=== PATIENT | male | born 1965 | race Caucasian/White ===

== ENCOUNTER 2016-06-04 09:51 | Emergency (ER) | payer OTHER ==
[2016-06-04] MEDS ORDERED: predniSONE 20 MG TABLET PO STA (12:12)
[2016-06-04] MEDS ORDERED: predniSONE 20 MG TABLET ONE (12:16)
== END 2016-06-04 12:24 | disposition home or self-care (01) ==
DX: M10.072 Idiopathic gout, left ankle and foot (principal); M25.562 Pain in left knee; I10 Essential (primary) hypertension
CPT/HCPCS: 99283; J7512

== ENCOUNTER 2016-08-12 15:35 | Emergency (ER) | payer OTHER ==
--- NOTE | 2016-08-12 16:19 | ED Physician Documentation ---
PD HPI LOWER EXT INJURY - Stated complaint Stated Complaint: LT ANKLE PX - Chief complaint Chief Complaint: Ext Problem - History obtained from History obtained from: Patient, Family - History of Present Illness PD HPI LOW EXT INJURY LOCATION: Left, Ankle, Foot Type of injury: Twist Where injury occurred: Other (friends house) Timing - onset: How many days ago (3) Timing - duration: Days (3) Timing - details: Gradual onset Pain level max: 8 Pain level now: 6 Improved by: Rest, Ice, Immobilization Worsened by: Moving, Palpating Associated symptoms: Swelling. No: Weakness, Numbness, Tingling Contributing factors: No: Anticoagulated, Prior ortho surgery Similar symptoms before: Has not had sx before Recently seen: Not recently seen Review of Systems Neurologic: denies: Focal weakness, Numbness PD PAST MEDICAL HISTORY - Past Medical History Cardiovascular: Hypertension, High cholesterol Musculoskeletal: Other - Past Surgical History Past Surgical History: Yes - Present Medications Home Medications: Ambulatory Orders Medication Instructions Recorded Confirmed Colchicine 1 tab PO DAILY 06/04/16 08/12/16 Esomeprazole [NexIUM] 1 tab PO DAILY 06/04/16 08/12/16 Febuxostat [Uloric] 1 tab PO DAILY 06/04/16 08/12/16 Lisinopril 1 tab PO DAILY 06/04/16 08/12/16 - Allergies Allergies/Adverse Reactions: Allergies Allergy/AdvReac Type Severity Reaction Status Date / Time nystatin [From Bio-Statin] Allergy Intermediate Edema Verified 08/12/16 15:41 shellfish derived Allergy Edema Verified 08/12/16 15:41 - Social History Does the pt smoke?: No Smoking Status: Never smoker Does the pt drink ETOH?: No Does the pt have substance abuse?: No - Immunizations Immunizations are current?: Yes PD ED PE NORMAL - Vitals Vital signs reviewed: Yes - General General: Alert and oriented X 3, No acute distress - Derm Derm: Warm and dry - Extremities Extremities: Other (LLE - Tender to palpation over left lateral malleolus as well as the base of the fifth metatarsal. No gross deformity. Mild swelling. Otherwise normal exam of the foot and ankle) - Neuro Neuro: Alert and oriented X 3 - Psych Psych: Normal mood, Normal affect Results - Vitals Vitals: Vital Signs - 24 hr 08/12/16 08/12/16 15:39 17:20 Temperature 36.4 C L 36.8 C Heart Rate 96 99 Respiratory 18 18 Rate Blood Pressure 135/86 H 134/88 H O2 Saturation 99 100 Oxygen O2 Source Room air - Rads (name of study) L ankle xray Radiology: Prelim report reviewed, EMP read contemporaneously, See rad report ( Soft tissue swelling without evidence of acute fracture. Small plantar heel spur. ) L foot xray Radiology: Prelim report reviewed, EMP read contemporaneously, See rad report ( Normal foot radiography. ) PD MEDICAL DECISION MAKING - ED course Complexity details: reviewed results, re-evaluated patient, considered differential (No gout, no septic joint, no fractures), d/w patient ED course: Patient is a 50-year-old male with what appears to be a left ankle and foot sprain. No acute findings on x-rays. Placed in a gel splint for comfort. He declines crutches here and states that he has them at home. Will use Motrin and Tylenol for pain. Patient counseled regarding signs and symptoms for which I believe and urgent re-evaluation would be necessary. Patient with good understanding of and agreement to plan and is comfortable going home at this time This document was made in part using voice recognition software. While efforts are made to proofread this document, sound alike and grammatical errors may occur. Departure - Departure Disposition: 01 Home, Self Care Clinical Impression: Ankle sprain Qualifiers: Encounter type: initial encounter Involved ligament of ankle: unspecified ligament Laterality: left Qualified Code(s): S93.402A - Sprain of unspecified ligament of left ankle, initial encounter Condition: Good Instructions: ED Sprain Ankle Follow-Up: your,doctor in 1 week [Other] Comments: You may bear weight as tolerated. Use your crutches at home as needed. Return if you worsen. Discharge Date/Time: 08/12/16 17:20
--- NOTE | 2016-08-12 16:24 | XRAY Preliminary Report ---
Exam: XR Ankle 3 View LT IMPRESSION: 1. Soft tissue swelling without evidence of acute fracture. 2. Small plantar heel spur. [facility] SITE ID: [id number]
--- NOTE | 2016-08-12 16:26 | XRAY Report ---
EXAM: LEFT ANKLE RADIOGRAPHY EXAM DATE: 08/12/2016 04:01 PM. CLINICAL HISTORY: Left lateral ankle pain and swelling for 2 days. COMPARISON: None. TECHNIQUE: 3 views. FINDINGS: Bones: No acute fracture. Ossicle adjacent to the medial malleolus. Small well-formed plantar heel sp ur. Joints: Normal. No effusion. No subluxations. The ankle mortise is normally aligned. Soft Tissues: Mild to moderate soft tissue swelling. IMPRESSION: 1. Soft tissue swelling without evidence of acute fracture. 2. Small plantar heel spur. [facility] Referring Provider Line: [phone] SITE ID: [id number]
--- NOTE | 2016-08-12 16:53 | XRAY Report ---
EXAM: LEFT FOOT RADIOGRAPHY EXAM DATE: 08/12/2016 04:28 PM. CLINICAL HISTORY: 5th metatarsal tenderness/swelling. COMPARISON: None. TECHNIQUE: 3 views. FINDINGS: Bones: Normal. No fractures or bone lesions. Joints: Normal. No subluxations. Soft Tissues: Normal. No soft tissue swelling. IMPRESSION: Normal foot radiography. [facility] Referring Provider Line: [phone] SITE ID: [id number]
[2016-08-12 17:20] VITALS: BP 134/88
== END 2016-08-12 17:20 | disposition home or self-care (01) ==
LOC: ED 15:35
DX: S93.402A Sprain of unspecified ligament of left ankle, initial encounter (principal); X50.0XXA Overexertion from strenuous movement or load, initial encounter; Y92.019 Unspecified place in single-family (private) house as the place of occurrence of the external cause; I10 Essential (primary) hypertension; E78.00 Pure hypercholesterolemia, unspecified
CPT/HCPCS: 99283

== ENCOUNTER 2019-02-13 08:55 | Outpatient (CLI) | payer OTHER ==
[2019-02-13 13:17] LABS: BASOPHILS # (AUTO) 0.1 10^3/uL (0.0-0.1); BASOPHILS % (AUTO) 1.4 %; EOSINOPHILS # (AUTO) 0.1 10^3/uL (0.0-0.7); EOSINOPHILS % (AUTO) 1.9 %; HGB - HEMOGLOBIN 13.9 g/dL (14.0-18.0); LYMPHOCYTES # (AUTO) 1.3 10^3/uL (1.5-3.5); LYMPHOCYTES % (AUTO) 17.9 %; MEAN CORPUSCULAR HEMOGLOBIN 27.7 pg (27.0-31.0); MEAN CORPUSCULAR HGB CONC 31.5 g/dL (32.0-36.0); MEAN CORPUSCULAR VOLUME 87.8 fL (80.0-94.0); MEAN PLATELET VOLUME 10.2 fL (7.4-11.4); MONOCYTES # (AUTO) 0.6 10^3/uL (0.0-1.0); MONOCYTES % (AUTO) 7.9 %; NEUTROPHILS # (AUTO) 5.2 10^3/uL (1.5-6.6); NEUTROPHILS % (AUTO) 70.5 %; PLT - PLATELET COUNT 348 10^3/uL (130-450); RED BLOOD COUNT 5.02 10^6/uL (4.70-6.10); RED CELL DISTRIBUTION WIDTH 14.6 % (12.0-15.0); WHITE BLOOD COUNT 7.4 x10^3/uL (4.8-10.8)
[2019-02-13 13:34] LABS: HEMOGLOBIN A1C 0.73 g/dL; HEMOGLOBIN A1C % 6.6 % (4.6-6.2)
[2019-02-13 13:35] LABS: ALBUMIN 4.2 g/dL (3.2-5.5); ALBUMIN/GLOBULIN RATIO 1.1 (1.0-2.2); ALKALINE PHOSPHATASE 60 IU/L (42-121); ALT ALANINE AMINOTRANSFERASE 35 IU/L (10-60); AST ASPARTATE AMINOTRANSFERASE 43 IU/L (10-42); BILIRUBIN,TOTAL 0.6 mg/dL (0.2-1.0); BUN - BLOOD UREA NITROGEN 16 mg/dL (6-20); CALCIUM 9.4 mg/dL (8.5-10.3); CARBON DIOXIDE - CO2 25 mmol/L (21-32); CHLORIDE 104 mmol/L (101-111); CHOL/HDL RATIO 4.4 (<5.0); CHOLESTEROL 221 mg/dL; CREATININE 0.8 mg/dL (0.6-1.2); GFR - MDRD 102 (>89); GLUCOSE 132 mg/dL (70-100); HDL CHOLESTEROL 50 mg/dL; LDL CHOLESTEROL,CALCULATED 146 mg/dL; LDL/HDL RATIO 2.9 (<3.6); SODIUM 136 mmol/L (135-145); VLDL CHOLESTEROL 25 mg/dL
== END 2019-02-13 23:59 | disposition home or self-care (01) ==
LOC: LAB.N 08:55
PROVIDERS: ATTEND Family Medicine
DX: E78.5 Hyperlipidemia, unspecified (principal); R73.03 Prediabetes; I10 Essential (primary) hypertension
CPT/HCPCS: 36415; 80050; 80061; 83036; 83721

== ENCOUNTER 2019-05-30 08:00 | Outpatient (CLI) | payer OTHER ==
[2019-05-30 19:39] LABS: CALCIUM 9.4 mg/dL (8.5-10.3); CREATININE 1.1 mg/dL (0.6-1.2)
[2019-05-30 19:40] LABS: CREATININE,URINE 90.9 mg/dL; MICROALBUM/CREATININE RATIO,UR 68.2 ug/mg (<30.0); MICROALBUMIN,URINE 6.2 mg/dL (0-300.0)
[2019-05-30 20:11] LABS: HB2 TOTAL 14.2 g/dL; HEMOGLOBIN A1C 0.7 g/dL; HEMOGLOBIN A1C % 6.7 % (4.6-6.2)
== END 2019-05-30 23:59 ==
LOC: LAB.N 08:00
PROVIDERS: ATTEND Family Medicine
DX: E11.9 Type 2 diabetes mellitus without complications (principal)
CPT/HCPCS: 36415; 80048; 82043; 82570; 83036

== ENCOUNTER 2020-02-26 11:12 | Outpatient (CLI) | payer OTHER ==
--- NOTE | 2020-02-26 11:15 | XRAY Report ---
PROCEDURE: Knee Standing BILAT INDICATIONS: BILATERAL CHRONIC KNEE PAIN TECHNIQUE: 4 views of the right knee, and for views of the left knee. COMPARISON: None. FINDINGS: Bones: No acute fractures or dislocations. No suspicious bony lesions. Joint spaces appear mildly narrowed at the medial and lateral compartments slightly greater on the left than the right with weig htbearing. Soft tissues: No knee joint effusions. No suspicious soft tissue calcification. IMPRESSION: No acute trauma found. No effusion or loose body seen. Mild degenerative joint space narrowing bilate rally on weightbearing, slightly greater on the left than the right. Incidental note is made of calci fic prominence at the distal tendon insertion at the right knee on the superior patella - mild calcif ic tendinitis is the presumed cause at that site. Reviewed by: Guicho Gee MD on 02/26/2020 11:14 AM PST Approved by: Guicho Gee MD on 02/26/2020 11:14 AM PST Station ID: [id number]
== END 2020-02-26 23:59 | disposition home or self-care (01) ==
LOC: DI.N 11:12
PROVIDERS: ATTEND Orthopaedic Surgery
DX: M17.0 Bilateral primary osteoarthritis of knee (principal)

== ENCOUNTER 2020-10-13 09:02 | Emergency (ER) | payer OTHER ==
[2020-10-13] MEDS ORDERED: predniSONE 20 MG TABLET PO STA (12:36)
[2020-10-13] MEDS ORDERED: HYDROcod/ACETAM 5/325 MG TABLET PO STA (12:36)
[2020-10-13] MEDS ORDERED: CYCLOBENZAPRINE 10 MG TABLET PO STA (12:36)
--- NOTE | 2020-10-13 12:42 | ED Physician Documentation ---
History of Present Illness - Stated complaint Stated Complaint: KNEE PX - Chief complaint Chief Complaint: Ext Problem - History obtained from History obtained from: Patient - History of Present Illness Timing: How many weeks ago (2) Pain level max: 8 Pain level now: 8 - Additonal information Additional information: Patient is a 55-year-old male who presents to the emergency department with bilateral knee pain. States ongoing for the past 2 to 3 weeks. Has a history of arthritis as well as gout in the bilateral knees. States this feels like his typical gout flare. He is currently on allopurinol at home. Has been taking Motrin without relief. Worse with movement, better with rest. No fevers. No chills. Has been evaluated by orthopedics for this as well. No history of trauma. Review of Systems Constitutional: denies: Fever GI: denies: Vomiting Neurologic: denies: Head injury PD PAST MEDICAL HISTORY - Past Medical History Cardiovascular: Hypertension, High cholesterol Respiratory: None Endocrine/Autoimmune: None GI: GERD : None HEENT: None Psych: Depression, Post traumatic stress disorder Musculoskeletal: Other Derm: None - Past Surgical History Past Surgical History: Yes - Present Medications Home Medications: Ambulatory Orders Medication Instructions Recorded Confirmed Colchicine 1 tab PO DAILY 06/04/16 08/12/16 Esomeprazole [NexIUM] 1 tab PO DAILY 06/04/16 10/13/20 lisinopriL [Lisinopril] 1 tab PO DAILY 06/04/16 10/13/20 Cyclobenzaprine [Flexeril] 10 mg PO TID PRN #20 tablet 10/13/20 Escitalopram [Lexapro] 5 mg PO DAILY 10/13/20 10/13/20 HYDROcod/ACETAM 5/325 [[place] 5/325] 1 - 2 ea PO Q6H PRN #14 tablet 10/13/20 allopurinoL [Zyloprim] 150 mg PO DAILY 10/13/20 10/13/20 predniSONE [Deltasone] 10 mg PO [id number] #42 tab 10/13/20 - Allergies Allergies/Adverse Reactions: Allergies Allergy/AdvReac Type Severity Reaction Status Date / Time nystatin [From Bio-Statin] Allergy Intermediate Edema Verified 10/13/20 09:20 shellfish derived Allergy Edema Verified 10/13/20 09:20 - Social History Does the pt smoke?: No Smoking Status: Never smoker Does the pt drink ETOH?: No Does the pt have substance abuse?: No - Immunizations Immunizations are current?: Yes PD ED PE NORMAL - Vitals Vital signs reviewed: Yes - General General: Alert and oriented X 3, No acute distress, Well developed/nourished - HEENT HEENT: Moist mucous membranes - Neck Neck: Supple, no meningeal sign - Cardiac Cardiac: RRR - Respiratory Respiratory: No respiratory distress, Clear bilaterally - Abdomen Abdomen: Soft, Non tender, Non distended - Derm Derm: Warm and dry - Extremities Extremities: No deformity, Other (Mild tenderness over the bilateral knees with bilateral swelling. Limited range of motion secondary to pain. Neurovascularly intact.) - Neuro Neuro: Alert and oriented X 3 - Psych Psych: Normal mood, Normal affect Results - Vitals Vitals: Vital Signs - 24 hr 10/13/20 10/13/20 10/13/20 09:20 12:01 12:44 Temperature 36.4 C L 36.4 C L Heart Rate 74 94 66 Respiratory 18 16 14 Rate Blood Pressure 136/97 H 154/92 H 132/81 H O2 Saturation 97 98 96 Oxygen O2 Source Room air PD MEDICAL DECISION MAKING - ED course Complexity details: reviewed results, re-evaluated patient, considered differential, d/w patient ED course: 55-year-old male with what appears to be gout versus osteoarthritis of the bilateral knees. We will place on a steroid taper, pain medication for home. He requested a muscle relaxant as well. We will add Flexeril. Recommend that he talk to his doctor about potential PRP injections of the knee to see if this will help with his osteoarthritis in the knees. Patient counseled regarding signs and symptoms for which I believe and urgent re-evaluation would be necessary. Patient with good understanding of and agreement to plan and is comfortable going home at this time This document was made in part using voice recognition software. While efforts are made to proofread this document, sound alike and grammatical errors may occur. Departure - Departure Disposition: 01 Home, Self Care Clinical Impression: Gouty arthritis of both knees Condition: Good Instructions: ED Arthritis Gout Follow-Up: [facility] [Provider Group] CHRISTINA WEBB ARNP [Primary Care Provider] - Within 1 week Prescriptions: predniSONE [Deltasone] 10 mg PO [id number] #42 tab Cyclobenzaprine [Flexeril] 10 mg PO TID PRN #20 tablet PRN Reason: Spasms HYDROcod/ACETAM 5/325 [[place] 5/325] 1 - 2 ea PO Q6H PRN #14 tablet PRN Reason: Pain Comments: Please follow-up with your doctor for further care. Return if you worsen. You should discuss PRP injections of the knee to see if this would help you. Unclear if this would be approved by the [place] or [facility]. Continue your current medications at home. I am prescribing a short course of narcotic pain medication for you. These are potentially dangerous and addictive medications that should be used carefully. These medications may constipate you. Take an ekrt-tly-clsozbe stool softener (docusate) twice daily with plenty of water while taking these medications. If you go 24 hours without a bowel movement, take ixoh-clp-qetjwcu miralax, per package instructions. Do not drink or drive while taking these medications. If you received narcotic or sedating medications while in the emergency department, do not drive for 24 hours. Store this medication in a safe, secure place and out of reach of children. It is a violation of federal law to give or sell this medication to another person or to use in a manner other than prescribed. The ED will not refill narcotic prescriptions, including prescriptions lost or stolen. To dispose of unwanted medications: 1. [facility] at [address] in [place] has a medication drop box. They accept prescription medications (in pill form) Wednesday through Wednesday 9:00 a.m. to 5:00 p.m. 2. [facility] [employer] accepts prescription medications (in pill form only) for disposal year round. Call for more information. 3. Contact the [facility] for the next [facility] sponsored prescription drug collection event. , [phone], or [phone];
[2020-10-13 12:45] VITALS: BP 132/81
== END 2020-10-13 13:00 | disposition home or self-care (01) ==
LOC: ED 09:02
DX: M10.062 Idiopathic gout, left knee (principal); M10.061 Idiopathic gout, right knee; I10 Essential (primary) hypertension
CPT/HCPCS: 99282; 99284; A9270; J7512

== ENCOUNTER 2020-12-08 09:47 | Emergency (ER) | payer OTHER ==
[2020-12-08] MEDS ORDERED: predniSONE 20 MG TABLET PO STA (11:39)
[2020-12-08] MEDS ORDERED: COLCHICINE 0.6 MG TABLET PO STA (11:39)
--- NOTE | 2020-12-08 12:20 | ED Physician Documentation ---
History of Present Illness - Stated complaint Stated Complaint: R+L KNEE/ANKLE PX - Chief complaint Chief Complaint: Ext Problem - History obtained from History obtained from: Patient - Additonal information Additional information: Patient comes emergency department chief complaint of onset of bilateral knee and ankle pain when he woke up this morning. Patient states that he has a history of both gout and a lot of stress to his joints over the years from doing martial arts, and that he normally takes allopurinol at baseline. However, he is not sure what triggered the pain he is currently having. He has not noticed any swelling or redness, and has had no fevers. He is not sure if the discomfort is due to the rain which just started last night and which we have not had for a few months now. Patient denies any acute injuries. No other complaints at this time. Review of Systems Ten Systems: 10 systems reviewed and negative Constitutional: reports: Reviewed and negative Eyes: reports: Reviewed and negative Ears: reports: Reviewed and negative Nose: reports: Reviewed and negative Throat: reports: Reviewed and negative Cardiac: reports: Reviewed and negative Respiratory: reports: Reviewed and negative GI: reports: Reviewed and negative : reports: Reviewed and negative Skin: reports: Reviewed and negative Musculoskeletal: reports: Joint pain Neurologic: reports: Reviewed and negative Psychiatric: reports: Reviewed and negative Endocrine: reports: Reviewed and negative Immunocompromised: reports: Reviewed and negative PD PAST MEDICAL HISTORY - Past Medical History Cardiovascular: Hypertension, High cholesterol Respiratory: None Endocrine/Autoimmune: None GI: GERD : None HEENT: None Psych: Depression, Post traumatic stress disorder Musculoskeletal: Other Derm: None - Past Surgical History Past Surgical History: Yes - Present Medications Home Medications: Ambulatory Orders Medication Instructions Recorded Confirmed Colchicine 1 tab PO DAILY 06/04/16 08/12/16 Esomeprazole [NexIUM] 1 tab PO DAILY 06/04/16 10/13/20 lisinopriL [Lisinopril] 1 tab PO DAILY 06/04/16 10/13/20 Cyclobenzaprine [Flexeril] 10 mg PO TID PRN #20 tablet 10/13/20 Escitalopram [Lexapro] 5 mg PO DAILY 10/13/20 10/13/20 HYDROcod/ACETAM 5/325 [[place] 5/325] 1 - 2 ea PO Q6H PRN #14 tablet 10/13/20 allopurinoL [Zyloprim] 150 mg PO DAILY 10/13/20 10/13/20 predniSONE [Deltasone] 10 mg PO [id number] #42 tab 10/13/20 Colchicine [Colcrys] 0.6 mg PO DAILY #15 tablet 12/08/20 HYDROcod/ACETAM 5/325 [[place] 5/325] 1 - 2 tablet PO Q6H PRN #14 tablet 12/08/20 predniSONE [Deltasone] 60 mg PO DAILY 5 Days #15 tablet 12/08/20 - Allergies Allergies/Adverse Reactions: Allergies Allergy/AdvReac Type Severity Reaction Status Date / Time nystatin [From Bio-Statin] Allergy Intermediate Edema Verified 12/08/20 09:57 shellfish derived Allergy Edema Verified 12/08/20 09:57 - Social History Does the pt smoke?: No Smoking Status: Never smoker Does the pt drink ETOH?: No Does the pt have substance abuse?: No - Immunizations Immunizations are current?: Yes PD ED PE NORMAL - Vitals Vital signs reviewed: Yes - General General: Alert and oriented X 3, No acute distress, Well developed/nourished - HEENT HEENT: Atraumatic, PERRL, EOMI, Moist mucous membranes - Neck Neck: Supple, no meningeal sign - Cardiac Cardiac: Strong equal pulses - Respiratory Respiratory: No respiratory distress - Derm Derm: Normal color, Warm and dry, No rash - Extremities Extremities: No deformity, No edema, No calf tenderness / cord, Other (Patient has good range of motion of knees and ankles but does cause some pain in each joint.) - Neuro Neuro: Alert and oriented X 3, nurse chemical dependency 2-12 intact, No motor deficit, No sensory deficit, Normal speech - Psych Psych: Normal mood, Normal affect Results - Vitals Vitals: Vital Signs - 24 hr 12/08/20 09:55 Temperature 36.4 C L Heart Rate 93 Respiratory 16 Rate Blood Pressure 143/101 H O2 Saturation 99 Oxygen O2 Source Room air - Labs Labs: Laboratory Tests 12/08/20 11:42 POC Whole Bld Glucose 113 H PD MEDICAL DECISION MAKING - ED course Complexity details: considered differential, d/w patient ED course: I discussed with the patient that imaging is unlikely to be helpful, as patient has not had any acute injury. He does not have any current Findings consistent with acute gout flare. I gave him doses of prednisone and colchicine here in the emergency department. I have given him prescriptions for the same at home, plus little hydrocodone. We have discussed follow-up with his primary care physician in the usual indications for return. Departure - Departure Disposition: Home, Self Care Clinical Impression: Joint pain Qualifiers: Joint pain location: unspecified Qualified Code(s): M25.50 - Pain in unspecified joint Gout Qualifiers: Gout site: unspecified site Gout etiology: unspecified cause Chronicity: acute Qualified Code(s): M10.9 - Gout, unspecified Condition: Stable Instructions: ED Diet Gout, ED Arthritis Gout Prescriptions: Colchicine [Colcrys] 0.6 mg PO DAILY #15 tablet predniSONE [Deltasone] 60 mg PO DAILY 5 Days #15 tablet HYDROcod/ACETAM 5/325 [[place] 5/325] 1 - 2 tablet PO Q6H PRN #14 tablet PRN Reason: Pain Comments: Your prescriptions have been electronically transmitted to [facility] in [place]. It is not clear whether it is your gout or the change in weather causing old stresses to your joints to act up. Either way, you may take the medications as needed until you are feeling better. Please follow-up with your primary care physician for further evaluation if you are not feeling better in the next week.
[2020-12-08 12:48] VITALS: BP 150/98
== END 2020-12-08 12:47 | disposition home or self-care (01) ==
LOC: ED 09:47
DX: M25.50 Pain in unspecified joint (principal); M10.9 Gout, unspecified; I10 Essential (primary) hypertension
CPT/HCPCS: 99283; A9270; J7512

== ENCOUNTER 2021-02-02 15:23 | Emergency (ER) | payer OTHER ==
[2021-02-02] MEDS ORDERED: CHERRY SYRUP 10 ML UDC PO ONE (16:00)
[2021-02-02] MEDS ORDERED: DEXAMETHASONE 10 MG/ML VIAL PO STA (16:00)
--- NOTE | 2021-02-02 16:03 | ED Physician Documentation ---
History of Present Illness - Stated complaint Stated Complaint: JOINT PX - Chief complaint Chief Complaint: General - History obtained from History obtained from: Patient - History of Present Illness Timing: Yesterday - Additonal information Additional information: 55-year-old male with a history of recurrent polyarthritis has had a flare of his arthritis complaints and is complaining of pain in the joints of both of his knees both of his ankles his right wrist. He has had issues with this previously a number of times and he usually uses a rescue with prednisone and colchicine. He has a history of gout he knows he does not have gout now. He woke up this morning with worsening pain and has come to the emergency department for relief. He has a primary care doctor at the [facility] and he has not had a referral to rheumatology. Review of Systems Constitutional: denies: Fever Ears: denies: Ear pain Nose: reports: Congestion Throat: denies: Sore throat Respiratory: reports: Dyspnea, Cough GI: denies: Nausea, Vomiting : denies: Dysuria Skin: denies: Rash Musculoskeletal: reports: Joint pain, Joint swelling, Pain with weight bearing. denies: Neck pain, Back pain Neurologic: denies: Generalized weakness, Focal weakness, Numbness PD PAST MEDICAL HISTORY - Past Medical History Cardiovascular: Hypertension, High cholesterol Respiratory: None Endocrine/Autoimmune: None GI: GERD : None HEENT: None Psych: Depression, Post traumatic stress disorder Musculoskeletal: Other Derm: None - Past Surgical History Past Surgical History: Yes - Present Medications Home Medications: Ambulatory Orders Medication Instructions Recorded Confirmed Colchicine 1 tab PO DAILY 06/04/16 08/12/16 Esomeprazole [NexIUM] 1 tab PO DAILY 06/04/16 10/13/20 lisinopriL [Lisinopril] 1 tab PO DAILY 06/04/16 10/13/20 Cyclobenzaprine [Flexeril] 10 mg PO TID PRN #20 tablet 10/13/20 Escitalopram [Lexapro] 5 mg PO DAILY 10/13/20 10/13/20 HYDROcod/ACETAM 5/325 [[place] 5/325] 1 - 2 ea PO Q6H PRN #14 tablet 10/13/20 allopurinoL [Zyloprim] 150 mg PO DAILY 10/13/20 10/13/20 predniSONE [Deltasone] 10 mg PO [id number] #42 tab 10/13/20 Colchicine [Colcrys] 0.6 mg PO DAILY #15 tablet 12/08/20 HYDROcod/ACETAM 5/325 [[place] 5/325] 1 - 2 tablet PO Q6H PRN #14 tablet 12/08/20 predniSONE [Deltasone] 60 mg PO DAILY 5 Days #15 tablet 12/08/20 Colchicine [Colcrys] 0.6 mg PO DAILY #15 tablet 02/02/21 HYDROcod/ACETAM 5/325 [[place] 5/325] 1 - 2 tablet PO Q6H PRN #14 tablet 02/02/21 dexAMETHasone [Decadron] 4 mg PO 0800 #5 tablet 02/02/21 - Allergies Allergies/Adverse Reactions: Allergies Allergy/AdvReac Type Severity Reaction Status Date / Time nystatin [From Bio-Statin] Allergy Intermediate Edema Verified 02/02/21 15:26 shellfish derived Allergy Edema Verified 02/02/21 15:26 - Social History Does the pt smoke?: No Smoking Status: Never smoker Does the pt drink ETOH?: No Does the pt have substance abuse?: No - Immunizations Immunizations are current?: Yes PD ED PE NORMAL - Vitals Vital signs reviewed: Yes (tachy and hypertensive ) - General General: Alert and oriented X 3, No acute distress, Well developed/nourished - HEENT HEENT: Atraumatic, PERRL, EOMI, Ears normal, Moist mucous membranes, Pharynx benign, Dentition benign - Neck Neck: Supple, no meningeal sign, No bony TTP - Cardiac Cardiac: RRR, No murmur - Respiratory Respiratory: No respiratory distress - Abdomen Abdomen: Soft, Non tender, Non distended - Back Back: No CVA TTP, No spinal TTP - Derm Derm: Normal color, Warm and dry, No rash - Extremities Extremities: Other (Pain to the right knee to any movement even with direct palpation no significant effusion pain to range of motion.) - Neuro Neuro: Alert and oriented X 3, pharmacist technician 2-12 intact, No motor deficit, No sensory deficit, Normal speech Eye Opening: Spontaneous Motor: Obeys Commands Verbal: Oriented GCS Score: 15 - Psych Psych: Normal mood, Normal affect Results - Vitals Vitals: Vital Signs - 24 hr 02/02/21 15:26 Temperature 36.5 C Heart Rate 110 H Respiratory 16 Rate Blood Pressure 152/80 H O2 Saturation 97 Oxygen O2 Source Room air PD MEDICAL DECISION MAKING - ED course Complexity details: reviewed results, re-evaluated patient, considered differential, d/w patient ED course: 55-year-old male with a history of recurrent polyarthritis has not seen the special crimes investigator he has had symptoms for 10 years undulating. He has severe pain in all of his joints today and he is administered some dexamethasone we will provide some additional steroid as well as the requested colchicine and some limited amount of pain medication. I have encouraged patient to follow-up with rheumatology and today we are obtaining a nasal swab for Covid as a send out. Departure - Departure Disposition: Home, Self Care Clinical Impression: Polyarthritis Condition: Stable Instructions: ED Joint Pain, ED Degenerative Joint Disease Follow-Up: PAVEL KEYES MD [Primary Care Provider] - Prescriptions: Colchicine [Colcrys] 0.6 mg PO DAILY #15 tablet dexAMETHasone [Decadron] 4 mg PO 0800 #5 tablet HYDROcod/ACETAM 5/325 [[place] 5/325] 1 - 2 tablet PO Q6H PRN #14 tablet PRN Reason: Pain Comments: Leonel, today it looks like you have polyarthritis that has flared and it appears you have had these episodes a number of times. A follow-up with rheumatology is indicated and may provide more additional or permanent relief. Follow-up with your primary care doctor for referral to rheumatology. This is the third visit for a narcotic pain prescription for the same problem in the calendar year. Our emergency department policy is a limit of prescription a year and we will not be able to provide you with additional pain medication for this problem again.
[2021-02-02 16:24] VITALS: BP 125/89
== END 2021-02-02 16:24 | disposition home or self-care (01) ==
LOC: ED 15:23
DX: M15.9 Polyosteoarthritis, unspecified (principal); I10 Essential (primary) hypertension; Z20.822 Contact with and (suspected) exposure to COVID-19
CPT/HCPCS: 87635; 99283; A9270

== ENCOUNTER 2021-05-15 12:30 | Outpatient (CLI) | payer OTHER ==
[2021-05-15 17:44] LABS: BASOPHILS # (AUTO) 0.2 10^3/uL (0.0-0.1); BASOPHILS % (AUTO) 2.8 %; EOSINOPHILS # (AUTO) 0.3 10^3/uL (0.0-0.7); EOSINOPHILS % (AUTO) 3.3 %; HCT - HEMATOCRIT 41.2 % (42.0-52.0); LYMPHOCYTES # (AUTO) 2.3 10^3/uL (1.5-3.5); LYMPHOCYTES % (AUTO) 29.7 %; MEAN CORPUSCULAR HEMOGLOBIN 26.2 pg (27.0-31.0); MEAN CORPUSCULAR HGB CONC 31.6 g/dL (32.0-36.0); MEAN CORPUSCULAR VOLUME 83.1 fL (80.0-94.0); MEAN PLATELET VOLUME 10.5 fL (7.4-11.4); MONOCYTES # (AUTO) 0.6 10^3/uL (0.0-1.0); MONOCYTES % (AUTO) 8.1 %; NEUTROPHILS # (AUTO) 4.4 10^3/uL (1.5-6.6); NEUTROPHILS % (AUTO) 55.8 %; PLT - PLATELET COUNT 428 10^3/uL (130-450); RED BLOOD COUNT 4.96 10^6/uL (4.70-6.10); RED CELL DISTRIBUTION WIDTH 16.6 % (12.0-15.0); WHITE BLOOD COUNT 7.9 x10^3/uL (4.8-10.8)
[2021-05-15 18:24] LABS: ALBUMIN 4.2 g/dL (3.2-5.5); ALBUMIN/GLOBULIN RATIO 1.1 (1.0-2.2); ALKALINE PHOSPHATASE 81 IU/L (42-121); ALT ALANINE AMINOTRANSFERASE 24 IU/L (10-60); AST ASPARTATE AMINOTRANSFERASE 26 IU/L (10-42); BILIRUBIN,TOTAL 0.3 mg/dL (0.2-1.0); BUN - BLOOD UREA NITROGEN 16 mg/dL (6-20); CALCIUM 9.6 mg/dL (8.5-10.3); CARBON DIOXIDE - CO2 25 mmol/L (21-32); CHLORIDE 104 mmol/L (101-111); CHOL/HDL RATIO 4.2 (<5.0); CHOLESTEROL 191 mg/dL; CREATININE 0.8 mg/dL (0.6-1.2); GFR - MDRD 101 (>89); GLUCOSE 90 mg/dL (70-100); HDL CHOLESTEROL 46 mg/dL; LDL CHOLESTEROL,CALCULATED 120 mg/dL; LDL/HDL RATIO 2.6 (<3.6); POTASSIUM 4.2 mmol/L (3.5-5.0); SODIUM 137 mmol/L (135-145); TOTAL PROTEIN 7.9 g/dL (6.7-8.2); TRIGLYCERIDES 126 mg/dL; URIC ACID 3.9 mg/dL (2.6-7.2); VLDL CHOLESTEROL 25 mg/dL
[2021-05-15 18:33] LABS: THYROID STIMULATING HORMONE 2.65 uIU/mL (0.34-5.60)
[2021-05-15 19:36] LABS: ESTIMATED AVERAGE GLUCOSE 137 mg/dL (70-100); HEMOGLOBIN A1c% 6.4 % (4.27-6.07)
== END 2021-05-15 12:31 | disposition home or self-care (01) ==
LOC: LAB.N 12:30
PROVIDERS: ATTEND Physician Assistant
DX: I10 Essential (primary) hypertension (principal); E78.5 Hyperlipidemia, unspecified; R73.03 Prediabetes; Z12.5 Encounter for screening for malignant neoplasm of prostate; Z13.29 Encounter for screening for other suspected endocrine disorder; M10.9 Gout, unspecified; Z13.9 Encounter for screening, unspecified
CPT/HCPCS: 36415; 80053; 80061; 83036; 83721; 84153; 84443; 84550; 85025

== ENCOUNTER 2021-07-31 08:19 | Emergency (ER) | payer OTHER ==
[2021-07-31] MEDS ORDERED: ERYTHROMYCIN OPHTH OINT 1 GM TUBE LEFTEYE STA (08:37)
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
[2021-07-31 08:40] VITALS: BP 183/117
== END 2021-07-31 08:44 | disposition home or self-care (01) ==
LOC: ED 08:19
DX: S01.112A Laceration without foreign body of left eyelid and periocular area, initial encounter (principal); Y04.2XXA Assault by strike against or bumped into by another person, initial encounter; Y92.213 High school as the place of occurrence of the external cause
CPT/HCPCS: 99282; J3490

== ENCOUNTER 2023-05-17 09:13 | Emergency (ER) | payer OTHER ==
--- NOTE | 2023-05-17 11:08 | ED Physician Documentation ---
PD HPI BACK PAIN - Stated complaint Stated Complaint: BACK/LT ARM PX - Chief complaint Chief Complaint: Back Pain - History obtained from History obtained from: Patient - History of Present Illness Timing - onset: Last night Timing - duration: Hours (10-12) Timing - details: Abrupt onset (he sates he coughed/sneezed and onset of left throacic back pain. Hurts to move and breath.) Location: Mid (scapular level left back.), Left Quality: Pain, Spasm Associated symptoms: No: Weakness, Numbness Worsened by: Movement, Twisting, Palpation Contributing factors: Other (sneezed/coughed and onset of the pain.) Similar symptoms before: Has not had sx before Review of Systems Constitutional: denies: Fever, Chills Nose: denies: Rhinorrhea / runny nose, Congestion Throat: denies: Sore throat Cardiac: denies: Chest pain / pressure Respiratory: denies: Dyspnea Neurologic: denies: Focal weakness, Numbness PD PAST MEDICAL HISTORY - Past Medical History Past Medical History: Yes Cardiovascular: Hypertension, High cholesterol Respiratory: Sleep apnea, CPAP use Endocrine/Autoimmune: None GI: GERD : None HEENT: None Psych: Depression, Post traumatic stress disorder Musculoskeletal: Osteoarthritis, Gout, Other Derm: None - Past Surgical History Past Surgical History: Yes - Present Medications Home Medications: Ambulatory Orders Medication Instructions Recorded Confirmed Esomeprazole [NexIUM] 40 mg PO DAILY 06/04/16 05/17/23 lisinopriL [Lisinopril] 40 mg PO DAILY 06/04/16 05/17/23 Escitalopram [Lexapro] 5 mg PO DAILY 10/13/20 05/17/23 allopurinoL [Zyloprim] 150 mg PO DAILY 10/13/20 05/17/23 Cyclobenzaprine [Flexeril] 10 mg PO TID PRN #20 tablet 05/17/23 HYDROcod/ACETAM 5/325 [[place] 5/325] 1 ea PO Q6H PRN #18 tablet 05/17/23 Lidocaine Patch 5% [Lidoderm Patch] 1 patch TOP DAILY PRN #10 patch 05/17/23 Meloxicam [Mobic] 7.5 mg PO BID 10 Days #20 tablet 05/17/23 - Allergies Allergies/Adverse Reactions: Allergies Allergy/AdvReac Type Severity Reaction Status Date / Time shellfish derived Allergy Unknown Verified 05/17/23 09:19 - Social History Does the pt smoke?: Yes Smoking Status: Current some day smoker Does the pt drink ETOH?: No Does the pt have substance abuse?: Yes Substance Use and Type: CBD oil / Products - Immunizations Immunizations are current?: Yes - POLST Patient has POLST: No PD ED PE NORMAL - Vitals Vital signs reviewed: Yes - General General: Alert and oriented X 3, Well developed/nourished, Other (appears very uncomfortable with movement and moderate breathing. Pain scapular level left back. ) - Neck Neck: Supple, no meningeal sign, No adenopathy - Cardiac Cardiac: RRR, No murmur - Respiratory Respiratory: Clear bilaterally - Abdomen Abdomen: Soft, Non tender - Back Back: No spinal TTP, Other (tender in muscle left lower scapular area. No skin lesions. Has focal tender spot in firm muscle area c/w muscle spasm. ) - Derm Derm: Normal color, Warm and dry, No rash - Neuro Neuro: No motor deficit, No sensory deficit Results - Vitals Vitals: Oxygen O2 Source Room air - Rads (name of study) chest xray Relevant Findings:: Prelim report reviewed (no acute process), EMP independent interpretation of test PD Medical Decision Making - ED course Complexity details: reviewed results (chest xray normal.), re-evaluated patient (reasolably improved degree of pain to now tolerable/moderate. Not gone but that is reasonable as I would not expect complete relief. Presume will decrease and resolve in 1-2 days timeframe. ), considered differential (muscle spasm from cough/sneeze. Has persistent spasm. Has focal tender muscle so I did trigger point injection with Kenalog and Buipvocaine with some improvement. Also given IM meds of toradol and dilaudid due to severity ofthe pain. ), d/w patient Departure - Departure Disposition: 01 Home, Self Care Clinical Impression: Thoracic myofascial strain Condition: Stable Record reviewed to determine appropriate education?: Yes Prescriptions: Cyclobenzaprine [Flexeril] 10 mg PO TID PRN #20 tablet PRN Reason: Spasms Lidocaine Patch 5% [Lidoderm Patch] 1 patch TOP DAILY PRN #10 patch PRN Reason: pain Meloxicam [Mobic] 7.5 mg PO BID 10 Days #20 tablet HYDROcod/ACETAM 5/325 [[place] 5/325] 1 ea PO Q6H PRN #18 tablet PRN Reason: Pain Comments: Heat stretching massage are all good for the area. You could try lidocaine patches to the area that is hurting in particular. I did do an injection with bupivacaine and a steroid medication to that trigger spot in the muscle. For oral medication, try some anti-inflammatories regularly for the next several days to week. Add cyclobenzaprine/Flexeril for muscle spasms and stiffness. To that add Tylenol 500 to 650 mg every 4-6 hours if needed for pains or hydrocodone/acetaminophen if needed for worse pain. Follow-up with your primary if not improved over the next several days. Return if needed. Your chest x-ray appeared clear without any signs of lung abnormality to account for the pain. Discharge Date/Time: 05/17/23 12:40
--- NOTE | 2023-05-17 11:37 | XRAY Report ---
PROCEDURE: Chest 1V INDICATIONS: chest pain TECHNIQUE: One view of the chest was acquired. COMPARISON: None. FINDINGS: Surgical changes and devices: None. Lungs and pleura: No pleural effusions or pneumothorax. Lungs are clear. Mediastinum: Mediastinal contours appear normal. Heart size is normal. Bones and chest wall: No suspicious bony lesions. Overlying soft tissues appear unremarkable. IMPRESSION: No acute cardiopulmonary process. Reviewed by: Jaimee Jeffries MD, PhD on 05/17/2023 11:35 AM [facility] Approved by: Jaimee Jeffries MD, PhD on 05/17/2023 11:35 AM [facility] Station ID: [id number]
[2023-05-17] MEDS: TRIAMCINOLONE 40 MG/ML VIAL MC STA (12:07)
[2023-05-17] MEDS: CYCLOBENZAPRINE 10 MG TABLET PO STA (12:09)
[2023-05-17] MEDS: HYDROcod/ACETAM 5/325 MG TABLET PO STA (12:09)
[2023-05-17] MEDS: KETOROLAC 30 MG/ML VIAL IM STA (12:10)
[2023-05-17 12:43] VITALS: BP 130/88; O2SAT 98
== END 2023-05-17 12:40 | disposition home or self-care (01) ==
LOC: ED 09:13
DX: S29.012A Strain of muscle and tendon of back wall of thorax, initial encounter (principal); X58.XXXA Exposure to other specified factors, initial encounter; I10 Essential (primary) hypertension; E78.00 Pure hypercholesterolemia, unspecified; G47.30 Sleep apnea, unspecified; Z79.899 Other long term (current) drug therapy; F17.200 Nicotine dependence, unspecified, uncomplicated
CPT/HCPCS: 20552; 71045; 96372; 99283; A9270